=== PATIENT | female | born 1995 | race Caucasian/White ===

== ENCOUNTER 2018-12-12 11:34 | Outpatient (REF) | payer OTHER, SELFPAY ==
--- NOTE | 2018-12-12 11:00 | PAPFT_PTH ---
PATIENT: Samantha Salazar LOC: [facility] U#:[id number] AGE/SX: 23/F ROOM: RE12/12/[address]: MARILIN Matias : 1995 BED: DIS: 12/12/2018 SPEC #: [id number] RECD: 12/12/18 12:52 STATUS: OLIVER REQ #: [id number] TINO: 12/12/18 11:[address]: Grace Fields DEPT: [facility] Cytology RECD BY: Nichole Aquino ENTERED: 12/12/18 12:53 SP TYPE: PAPFT LORE DR: None Tissues: 1 - CX/ENDOCX FOR PAP SMEARS Procedures: PAP THIN PREP/[facility]VM Screening Comments: [id number]
[2018-12-15 14:37] LABS: Chlamydia Result Negative; GC Result Negative; Specimen Description CERVIX
== END 2018-12-12 11:54 ==
LOC: LBN 11:34
PROVIDERS: Visit Provider Nurse Practitioner Family
DX: Z00.00 Encounter for general adult medical examination without abnormal findings (principal); Z11.3 Encounter for screening for infections with a predominantly sexual mode of transmission; Z12.4 Encounter for screening for malignant neoplasm of cervix
CPT/HCPCS: 87491; 87591; 88142

== ENCOUNTER 2019-04-08 16:13 | Outpatient (REF) | payer OTHER, SELFPAY ==
[2019-04-08 21:50] LABS: Abs Immature Grans 0.01 k/cumm (0.0-0.09); Absolute Basophil Count 0.02 k/cumm (0.0-0.2); Absolute Eosinophil Count 0.09 k/cumm (0.0-0.7); Absolute Lymphocyte Count 2.63 k/cumm (1.2-3.4); Absolute Monocyte Count 0.56 k/cumm (0.11-0.7); Absolute Neutrophil Count 3.67 k/cumm (1.2-6.7); Basophils % 0.3; Eosinophils % 1.3; HCT 40.4 % (36.0-46.0); HGB 13.1 g/dL (12.0-15.5); Immature Grans % 0.1; Lymphocytes % 37.7; Mean Corp. HGB Concentration 32.4 g/dL (32.0-36.0); Mean Corpuscular Hemoglobin 29.6 pg (27.0-33.0); Mean Corpuscular Volume 91.4 fL (80-95); Mean Platelet Volume 11.8 fL (8.0-11.0); Neutrophils % 52.6; Platelet Count 280 x1000/uL (130-400); RBC 4.42 m/cumm (4.00-5.20); RBC Distribution Width 12.6 % (11.7-14.6); White Blood Cell Count 6.98 k/cumm (4.4-10.8)
[2019-04-08 22:09] LABS: Bilirubin Negative (Negative); Blood Negative (Negative); Clarity Clear (Clear); Glucose Negative (Negative); Ketones Negative (Negative); Leukocyte Esterase Negative (Negative); Nitrite Negative (Negative); Specific Gravity 1.015 (1.005-1.025); Urobilinogen 0.2 EU/dL (Up TO 0.2)
[2019-04-08 22:14] LABS: ALT 21 U/L (12-78); AST 18 U/L (15-37); Albumin 3.7 g/dL (3.4-5.0); Alkaline Phosphatase 84 U/L (46-116); BUN 11 mg/dL (7-18); Bilirubin, Total 0.2 mg/dL (0.2-1.0); CREATININE 0.73 mg/dL (0.55-1.02); Calcium 8.7 mg/dL (8.5-10.1); Chloride 103 mmol/L (98-107); Glucose 91 mg/dL (70-100); Potassium 4.2 mmol/L (3.5-5.1); Sodium 141 mmol/L (136-145); TSH (W/Ref FT4) 1.19 uIU/mL (0.358-3.74); Total Protein 7.1 g/dL (6.4-8.2); Vitamin B12 244 pg/mL (193-986)
== END 2019-04-08 16:33 ==
LOC: NCHCN 16:13
PROVIDERS: Visit Provider Nurse Practitioner Family
DX: F10.11 Alcohol abuse, in remission (principal); F41.8 Other specified anxiety disorders; R45.4 Irritability and anger; R35.0 Frequency of micturition
CPT/HCPCS: 80053; 81003; 82607; 84443; 85025

== ENCOUNTER 2019-10-06 15:25 | Outpatient (CLI) | payer OTHER, SELFPAY ==
[2019-10-06 15:51] LABS: Abs Immature Grans 0.01 k/cumm (0.0-0.09); Absolute Basophil Count 0.01 k/cumm (0.0-0.2); Absolute Eosinophil Count 0.03 k/cumm (0.0-0.7); Absolute Lymphocyte Count 2.08 k/cumm (1.2-3.4); Absolute Monocyte Count 0.49 k/cumm (0.11-0.7); Absolute Neutrophil Count 4.57 k/cumm (1.2-6.7); Basophils % 0.1; Eosinophils % 0.4; HCT 40.8 % (36.0-46.0); HGB 13.4 g/dL (12.0-15.5); Immature Grans % 0.1 %; Lymphocytes % 28.9; Mean Corp. HGB Concentration 32.8 g/dL (32.0-36.0); Mean Corpuscular Hemoglobin 29.1 pg (27.0-33.0); Mean Corpuscular Volume 88.7 fL (80-95); Mean Platelet Volume 10.4 fL (8.0-11.0); Monocytes % 6.8; Neutrophils % 63.7; Platelet Count 260 x1000/uL (130-400); RBC Distribution Width 12.1 % (11.7-14.6); White Blood Cell Count 7.19 k/cumm (4.4-10.8)
[2019-10-06 16:35] LABS: ALT 16 U/L (14-59); AST 17 U/L (15-37); Albumin 3.7 g/dL (3.4-5.0); Alkaline Phosphatase 103 U/L (46-116); Anion Gap 11.7 mmol/L (3-11); BUN 11 mg/dL (7-18); Bilirubin, Total 0.6 mg/dL (0.2-1.0); CO2 27.3 mmol/L (21.0-32.0); CREATININE 0.83 mg/dL (0.55-1.02); Calcium 9.3 mg/dL (8.5-10.1); Chloride 101 mmol/L (98-107); Glucose 102 mg/dL (74-106); Lipase 72 U/L (73-393); Potassium 3.8 mmol/L (3.5-5.1); Sodium 140 mmol/L (136-145); Total Protein 7.3 g/dL (6.4-8.2)
== END 2019-10-06 15:45 ==
PROVIDERS: PCP Nurse Practitioner Family; Visit Provider Specialist/Technologist Athletic Trainer
DX: R10.30 Lower abdominal pain, unspecified (principal)
CPT/HCPCS: 36415; 80053; 83690; 85025

== ENCOUNTER 2019-10-07 01:54 | Outpatient (CLI) | payer OTHER, SELFPAY ==
--- NOTE | 2019-10-07 08:13 | DI.US_ITS ---
EXAM: US PELVIS TRANSVAGINAL CLINICAL HISTORY: LOW ABD PAIN, LT GREATER THAN RT, R10.30 TECHNIQUE: Ultrasound performed using standard protocol. Transabdominal and transvaginal exams wer e performed. COMPARISON: No exams were available for comparison FINDINGS: The uterus measures 7 x 2.9 x 3.5 cm. The endometrial stripe measures 3 millimeters in thickness. The ovaries are normal in size and appearance. No cysts or masses are seen. There is no evidence of free fluid or hydronephrosis. IMPRESSION: Negative pelvic ultrasound.
== END 2019-10-07 02:14 ==
PROVIDERS: PCP Nurse Practitioner Family; Visit Provider Specialist/Technologist Athletic Trainer
DX: R10.32 Left lower quadrant pain (principal)
CPT/HCPCS: 76830; 76856

== ENCOUNTER 2020-03-04 15:14 | Outpatient (REF) | payer OTHER, SELFPAY ==
--- NOTE | 2020-03-04 15:40 | PAPFT_PTH ---
PATIENT: Samantha Salazar LOC: [facility] U#:[id number] AGE/SX: 24/F ROOM: RE03/04/[address]: MARILIN Matias : 1995 BED: DIS: 03/04/2020 SPEC #: [id number] RECD: 03/07/20 12:31 STATUS: OLIVER REQ #: [id number] TINO: 03/04/20 15:[address]: Grace Fields DEPT: [facility] Cytology RECD BY: Barbara Bennett ENTERED: 03/07/20 12:31 SP TYPE: PAPFT OTHR DR: Lillie Lara Tissues: 1 - CX/ENDOCX FOR PAP SMEARS Procedures: PAP THIN PREP/UVM Screening Comments: [id number]
[2020-03-07 15:45] LABS: Chlamydia Result Negative (Negative); GC Result Negative (Negative)
== END 2020-03-04 15:34 ==
LOC: LBN 15:14
PROVIDERS: PCP Nurse Practitioner Family; Visit Provider Nurse Practitioner Family
DX: Z11.3 Encounter for screening for infections with a predominantly sexual mode of transmission (principal); Z12.4 Encounter for screening for malignant neoplasm of cervix
CPT/HCPCS: 87491; 87591; 88142

== ENCOUNTER 2020-11-07 03:21 | Outpatient (CLI) | payer OTHER, SELFPAY ==
[2020-11-07 09:54] LABS: Vitamin D 25 Total 28.6 ng/ml (30-100)
== END 2020-11-07 03:22 | disposition home or self-care (01) ==
PROVIDERS: PCP Nurse Practitioner Family; Visit Provider Nurse Practitioner Psychiatric/Mental Health
DX: F41.8 Other specified anxiety disorders (principal); E55.9 Vitamin D deficiency, unspecified
CPT/HCPCS: 36415; 82306

== ENCOUNTER 2021-01-04 11:08 | Outpatient (REF) | payer OTHER, SELFPAY ==
[2021-01-04 22:11] LABS: Abs Immature Grans 0.01 10^3/uL (0.0-0.06); Absolute Basophil Count 0.02 10^3/uL (0.0-0.2); Absolute Eosinophil Count 0.03 10^3/uL (0.0-0.7); Absolute Lymphocyte Count 1.74 10^3/uL (1.2-3.4); Absolute Monocyte Count 0.42 10^3/uL (0.1-0.8); Absolute Neutrophil Count 3.91 10^3/uL (1.2-6.7); Basophils % 0.3; Eosinophils % 0.5; HCT 40.4 % (36.0-46.0); HGB 13.2 g/dL (11.2-15.7); Immature Grans % 0.2; Lymphocytes % 28.4; MCH 28.8 pg (27.0-33.0); MCHC 32.7 % (32.0-36.0); MCV 88.2 fL (80-95); MPV 11.3 fL (8.0-11.0); Monocytes % 6.9; Neutrophils % 63.7; Nucleated RBC 0 %; Platelet Count 297 10^3/uL (130-400); RBC 4.58 10^6/uL (3.93-5.22); RDW 13.2 % (11.7-14.6); RDW-SD 42.3 fL; WBC 6.13 10^3/uL (4.4-10.8)
[2021-01-04 22:42] LABS: Ferritin 42 ng/mL (8-252); TSH (W/Ref FT4) 1.22 uIU/mL (0.36-3.74)
[2021-01-04 22:44] LABS: Iron 73 ug/dL (50-170); Total Iron Binding Capacity 443 ug/dL (250-450); Transferrin Sat 16 % (15-50)
[2021-01-05 04:37] LABS: Vitamin D 25 Total 28.2 ng/mL (30-100)
== END 2021-01-04 11:09 | disposition home or self-care (01) ==
LOC: NCHCN 11:08
PROVIDERS: PCP Nurse Practitioner Family; Visit Provider Nurse Practitioner Family
DX: E55.9 Vitamin D deficiency, unspecified (principal); R53.83 Other fatigue; K62.5 Hemorrhage of anus and rectum
CPT/HCPCS: 82306; 82728; 83540; 83550; 84443; 85025

== ENCOUNTER 2021-03-06 14:11 | Outpatient (REF) | payer OTHER, SELFPAY ==
--- NOTE | 2021-03-06 13:45 | PAPFT_PTH ---
PATIENT: Samantha Salazar LOC: [facility] U#:[id number] AGE/SX: 25/F ROOM: RE03/06/[address]: MARILIN Matias : 1995 BED: DIS: 03/06/2021 SPEC #: [id number] RECD: 03/06/21 18:00 STATUS: ROSLYNYaya REQ #: [id number] TINO: 03/06/21 13:[address]: Grace Fields DEPT: [facility] Cytology RECD BY: Barbara Bennett ENTERED: 03/06/21 18:00 SP TYPE: PAPFT OTHR DR: Lillie Lara Tissues: 1 - CX/ENDOCX FOR PAP SMEARS Procedures: PAP THIN PREP/UVM Screening Comments: [id number]
--- OUTSIDE RECORDS SUMMARY | 2021-03-06 14:15 | XMS_ITS ---
:1995 Author Care Team Providers Name Role Phone RASHIDA TYSON [employer]BACCO WAREHOUSE MANAGER Primary Care Provider [phone] [facility] MEDICAL RECORDS Primary Care Provider [phone] Allergies Code Code System Name Reaction Severity Status Onset NKDA ? Medications Name Status Start Date Stop Date ? ? buspirone 10 mg tablet Active ? Not avail able Take 1 tablet twice a day by oral route. citalopram 10 mg tablet Completed ? 06/09/20 Take 1 tablet every day by oral route. citalopram 20 mg tablet Completed ? 06/09/20 20 Take 1 tablet every day by oral route. Lamictal 25 mg chewable dispersible tablet Completed ? 06/09/2020 Chew 2 tablets twice a day by oral route. lamotrigine 100 mg tablet Completed ? 2020 Take 1 tablet every day by oral route. methylphenidate 20 mg tablet Active ? Not available Take 1 tablet 3 times a day by oral route. modafinil 200 mg tablet Completed ? 11/14/19 take 1/2 to 1 tablet PO QAM norethindrone Active ? Not available olanzapine 5 mg disintegrating tablet Completed ? 10/20/2020 Place 1 tablet twice a day by translingual route. Ortho Micronor 0.35 mg tablet Completed ? Take 1 tablet every day by oral route. propranolol 10 mg tablet Active ? Not shyann ilable Take 2 tablets 3 times a day by oral route. trazodone 50 mg tablet Completed ? Take 1 tablet every day by oral route. Vraylar 1.5 mg capsule Active ? Not avail able Take 1 capsule every day by oral route. zolpidem 5 mg tablet Completed ? 08/05/2020 take 1-2 PO night of sleep study if needed Problems Name Status Onset Date Source ? Obesity Active 05/31/2020 ? Bipolar Disorder Active 05/31/2020 ? Fatigue Active 05/31/2020 ? Palpitations Active 05/31/2020 ? Dysphagia Active 05/31/2020 ? Abdominal Pain Active 05/31/2020 ? Snoring Active 06/08/2020 ? Hypnagogic Hallucinations Active 06/09/2020 ? Weight Gain Active 08/09/2020 ? Narcolepsy without Cataplexy Active ? ? Procedures None recorded. Results Lab Results Date Name Specimen Result Interpretation Description Value Range Status Address ? 09/16/2020 Drug UR ? Thc negative neg (50 Final [place] Screen, NG/mL NG/mL) Hospital Lab Urine NG/mL (Internal) : [address], [place] ? ? UR ? Pcp negative neg (25 Final [place] NG/mL) Hospital L ab (Internal) : [address], [place] ? ? UR ? Will negative neg (150 [place] NG/mL) Hospital L ab (Internal) : [address], [place] ? ? UR ? Met negative neg (500 Final [place] NG/mL) Hospital L ab (Internal) : [address] [place] ? ? UR ? Opi negative neg (100 Final [place] NG/mL) Hospital L ab (Internal) : [address] [place] ? ? UR ? Amp negative neg (500 Final [place] NG/mL) Hospital L ab (Internal) : [address] [place] ? ? UR ? Bzo negative neg (150 Final [place] NG/mL) Hospital L ab (Internal) : [address] [place] ? ? UR ? Tca negative neg (300 Final [place] NG/mL) Hospital L ab (Internal) : [address] [place] ? ? UR ? Mtd negative neg (200 [place] NG/mL) Hospital L ab (Internal) : [address] [place] ? ? UR ? Bar negative neg (200 Final [place] NG/mL) Hospital L ab (Internal) : [address] [place] ? ? UR ? Oxy negative neg (100 Final [place] NG/mL) Hospital L ab (Internal) : [address] [place] ? ? UR ? Ppx negative neg (300 Final [place] NG/mL) Hospital L ab (Internal) : [address] [place] ? ? UR ? Bup negative neg (10 [place] NG/mL) Hospital L ab (Internal) : [address] [place] Past Encounters 01/24/2021 Narcolepsy without Cataplexy Kath Ochoa HEALTHCARE MANAGEMENT CONSULTANT: [address] [place] [phone], Ph. 11/16/2020 Narcolepsy without Cataplexy Kath Ochoa HEALTHCARE MANAGEMENT CONSULTANT: [address] [place] [phone], Ph. 10/20/2020 Narcolepsy without Cataplexy Kath Ochoa HEALTHCARE MANAGEMENT CONSULTANT: [address] [place] [phone], Ph. 08/09/2020 Hypnagogic Hallucinations; Hypersomnia; Weight Gain Kath Ochoa HEALTHCARE MANAGEMENT CONSULTANT: [address] [place] [phone], Ph. 06/09/2020 Snoring; Hypnagogic Hallucinations; Slee p Paralysis Kath Ochoa HEALTHCARE MANAGEMENT CONSULTANT: [address] [place] [phone], Ph. Social History Tobacco Smoking Status Never Smoker Vaccine List None recorded. Plan of Care Reminders Provider Appointments None ? ? recorded. Lab None ? ? recorded. Referral None ? ? recorded. Procedures None ? ? recorded. Surgeries None ? ? recorded. Imaging None ? ? recorded. Vitals 01/24/2021 08:45AM Office 30 Height Weight BMI Blood Pressure 162.56 cm 90.72 kg 34.3 kg/m2 135/65 mm[Hg] 11/16/2020 12:30PM Office 30 Height Weight BMI 162.56 cm 90.72 kg 34.3 kg/m2 10/20/2020 08:00AM Office 30 Height Weight BMI 162.56 cm 94.8 kg 35.9 kg/m2 08/09/2020 09:45AM Office 30 Height Weight BMI Blood Pressure 162.56 cm 95.21 kg 36 kg/m2 118/76 mm[Hg] 06/09/2020 01:45PM New Patient 45 Height Weight BMI Blood Pressure 162.56 cm 90.45 kg 34.2 kg/m2 124/76 mm[Hg]
--- OUTSIDE RECORDS SUMMARY | 2021-03-06 14:15 | XMS_ITS | Encounter Summary ---
:1995 Author Care Team Providers Name Role Phone Lillie Marcelo Marco JAMMER HOOKER Primary Care Provider [phone] [facility] Medical Records Primary Care Provider [phone] Reason for Visit None recorded. Assessment and Plan 1. Narcolepsy without cataplexy MSLT 09/16/20 (after full nigh t PSG with 97% sleep efficiency), she slept 5/5 nap with a mean sleep latency of 5 minutes and 3/5 SOREM's. She was taking methylphenidate 20 mg TID (prescribed b y psychiatry) with significant residual sleepiness so it was recently changed to extended release and this has been even less effective. She did not tolerate modafinil 200 mg. Given her Bipolar diagnosi s Sunosi would not be a good choice. Wak ix and Xywav may be considered in addition to methylphenidate for residual daytime sleepiness. I previously suggested planned naps but her schedule does not allow this. She is advsied to contact Arin zhu's office to report that the new medication is not working. In the meantime I discussed Wakix and Xywav and covered side effects and risks of these medicati ons (including need for back-up contrace ption, respiratory depression, seizure, coma and ). She is aware she would need to sign a controlled drug contract if she started one of these. She wanted so me time to think about these options and will get back to us with her decision. Drowsy driving precautions were reviewed. I provided greater than 30 minutes in e care of this patient, more than half the time was spent in [id number] counseling. Discussion Note: None recorded.Patient educational handouts: No information available. Plan of Care Reminders Provider Appointments None ? ? recorded. Lab None ? ? recorded. Referral None ? ? recorded. Procedures None ? ? recorded. Surgeries None ? ? recorded. Imaging None ? ? recorded. Medications Name Start Date ? ? buspirone 10 mg tablet ? Take 1 tablet twice a day by oral route. methylphenidate 20 mg tablet ? Take 1 tablet 3 times a day by oral route. norethindrone ? propranolol 10 mg tablet ? Take 2 tablets 3 times a day by oral route. Vraylar 1.5 mg capsule ? Take 1 capsule every day by oral route. Medications Administered None recorded. Vitals Height Weight BMI Blood Pressure 5 ft 4 in 200 lbs 34.3 kg/m2 135/65 mm[Hg] Results Lab Results None recorded. Allergies Code Code System Name Reaction Severity Onset NKDA ? ? ? Problems Name Status Onset Date Source ? Obesity Active 05/31/2020 ? Bipolar Disorder Active 05/31/2020 ? Fatigue Active 05/31/2020 ? Palpitations Active 05/31/2020 ? Dysphagia Active 05/31/2020 ? Abdominal Pain Active 05/31/2020 ? Snoring Active 06/08/2020 ? Hypnagogic Hallucinations Active 06/09/2020 ? Weight Gain Active 08/09/2020 ? Narcolepsy without Cataplexy Active ? ? Procedures None recorded. Vaccine List None recorded. Social History Tobacco Smoking Status Never Smoker Alcohol intake Occasional Notes: once a wee k Live alone or with others? with others Notes: boy friend Animal exposure? N Notes: 4 cats Are you currently employed? Y Education 12 Blind or serious difficulty seeing Y Not es: corrective lens Hard of hearing or deaf in one or N both ears? 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 Past Encounters 01/24/2021 Narcolepsy without Cataplexy Kath Ochoa MORTGAGE PROCESSOR: [address] [place] [phone], Ph. History of Present Illness Note: <p>Shonaryan Salazar has a Zoom visit for narcolepsy follow-up. She has given consent to have a telehealth visit. Patient is at home, provider is in the office</p><p>
</p><p>Shan was last seen by me on 11/16/20. She has a medical history to include Bipolar, PTSD, ADHD, ETOH abuse in remission, overweight and narcolepsy. Labs 10/06/19 CMP and CBC normal. She noted symptoms of snoring, daytime somnolence (ESS 12), witnessed apneas, night sweats, nocturia, nocturnal heartburn, sleep paralysis and possible hypnagogic hallucinations.</p><p><br& gt;</p><p>Polysomnogram was completed on {{DATE 06/27/2020}} (BMI 34.15) . Sleep efficiency was {{96# 80}}%, AHI {{0.2# NUMBER}}/hr, RDI {{0.4# NUMBER}}/hr, REM AHI {{1.1# NUMBER}}/hr, REM RDI {{1.6# NUMBER}}/hr, supine AHI {{0# NUMBER}}/hr, right lateral AHI {{2# NUMBER}}/hr, left lateralAHI {{0# NUMBER}}/hr, sp02 julio césar {{91# NUMBER}}%, {{0# NUMBER}} minutes were spent at a saturation <88%, arousal index {{9# NUMBER}}/hr, PLMi {{0# NUMBER}}/hr, PLM arousal index {{0# NUMBER}}/hr. EKG showed {{NSR*}}. Intermittent snoring. She took Ambien 5 mg for the study, sleep onset 13 minute s, REM latency 186 minutes, REM sleep 22%. MSLT ordered last visit.</p><p>Polysomnogram was completed on {{DATE 09/15/2020}} (BMI 35.87). Sleep efficiency was {{97# 80}}%, sleep onset 8 minutes, REM latency 102 minutes. AHI {{1.4# NUMBER}}/hr, RDI {{2.2# NUMBER}}/hr, REM AHI {{NUMBER*}}/hr, REM RDI {{5.7# NUMBER}}/hr, supine AHI {{2# NUMBER}}/hr, right lateral AHI {{0# NUMBER}}/hr, left lateral AHI {{0# NUMBER}}/hr, sp02 julio césar {{85# NUMBER}}%, {{0# NUMBER}} minutes were spent at a saturation <88%, arousal index {{4# NUMBER}}/hr, PLMi {{0# NUMBER}}/hr, PLM arousal index {{0# NUMBER}}/hr. EKG showed {{tachycardia# NSR}}. MSLT 09/16/20 she slept 5/5 naps, mean sleep latency and 3/5SOREM's consistent with a diagnosis of narcolepsy.</p><p>
</p><p>Last visit she was taking methylphenidate 20 mg TID prescribed by psychiatry. She had intolerable side effects to modafinil 200 mg. She was in the process of weaning off lamotrigine and had just been started on Vraylar. Occasional difficulty getting to sleep.</p><p>
</p><p>Astrid says she is now completely off the lamotrigine. About 1-2 weeks ago she was changed over to me thylphenidate ER 18 mg and she feels it is not helping at all. The methylphenidate 20 mg TID was only helping a little bit. She is feeling discouraged about feeling so sleepy. She is trying to be alseep by 10 pm, she occasionally struggles to fall asleep. She tosses and turns and wakes up a lot and is aware of a lot of dreaming. She gets up at 7 am. She is not able to take naps because of work and is exhausted all day. </p><p>She is getting her medications prescribed by Arin Clark NP. </p><p>
</p><p>
</p><p>ESS today </p><p>
</p>Review of Systems: ROS as noted in the HPI Review of Systems None recorded. Physical Exam ? Notes: <p>General: A&O, well groome d {{over weight * obese morbidly obese normal weight thin}}.
HEAD: no rmocephalic & atraumatic.
EYES: non icteric.
LUNGS: CTA all f ields. Good air movement.
CARDIO: RRR without murmur, gallop or thrill.
NEURO: A&O. Normal gait.
PSYCH: Normal mood and affect.
CUTANEOUS: no overt lesions or rashes</p>
[2021-03-07 14:02] LABS: Chlamydia Result Negative (Negative); GC Result Negative (Negative)
== END 2021-03-06 14:12 | disposition home or self-care (01) ==
LOC: LBN 14:11
PROVIDERS: PCP Nurse Practitioner Family; Visit Provider Nurse Practitioner Family
DX: Z11.3 Encounter for screening for infections with a predominantly sexual mode of transmission (principal); Z12.4 Encounter for screening for malignant neoplasm of cervix
CPT/HCPCS: 87491; 87591; 88142

== ENCOUNTER 2022-03-19 13:35 | Outpatient (REF) | payer BC, SELFPAY ==
--- NOTE | 2022-03-19 13:00 | PAPFT_PTH ---
PATIENT: Samantha Salazar LOC: [facility] U#:[id number] AGE/SX: 26/F ROOM: RE03/19/[address]: MARILIN Matias : 1995 BED: DIS: 03/19/2022 SPEC #: [id number] RECD: 03/19/22 18:22 STATUS: OLIVER REQ #: [id number] TINO: 03/19/22 13:[address]: Grace Fields DEPT: [facility] Cytology RECD BY: Barbara Bennett ENTERED: 03/19/22 18:23 SP TYPE: PAPFT OTHR DR: Lillie Lara Tissues: 1 - CX/ENDOCX FOR PAP SMEARS Procedures: PAP THIN PREP/UVM Screening Comments: [id number]
[2022-03-20 15:15] LABS: Chlamydia Result Negative (Negative); GC Result Negative (Negative)
== END 2022-03-19 13:36 | disposition home or self-care (01) ==
LOC: LBN 13:35
PROVIDERS: PCP Nurse Practitioner Family; Visit Provider Nurse Practitioner Family
DX: Z11.3 Encounter for screening for infections with a predominantly sexual mode of transmission (principal); Z12.4 Encounter for screening for malignant neoplasm of cervix
CPT/HCPCS: 87491; 87591; 88142

== ENCOUNTER 2022-05-16 16:08 | Outpatient (REF) | payer OTHER, SELFPAY ==
--- OUTSIDE RECORDS SUMMARY | 2022-05-16 16:10 | XMS_ITS | Encounter Summary ---
:1995 Author Organization [facility] Address [address] [place] [address] Care Team Providers Name Role Phone Unknown, Provider Primary Care Provider Encounter Details Date Type Department Care Team Description 03/04/2020 Lab Requisition [facility] Outr Resulting Lab, Pathology & Laboratory Provider [facility] [address] [place] [address] Social History Tobacco Use Types Packs/Day Years Used Date Never Assessed Sex Assigned at Date Recorded Not on file documented as of this encounter Plan of Treatment Not on filedocumented as of this encounter Procedures Procedure Name Priority Date/Time Associated Comments Diagnosis CHLAMYDIA/N. Routine 03/04/2020 15:40 Results for this GONORRHOEAE AMPLIFIED EDT proced ure are in RNA the results section. documented in this encounter Results CHLAMYDIA/N. GONORRHOEAE AMPLIFIED RNA (03/04/2020 15:40 EDT) Pathologist Sig nature Gonococcus Result Negative Negative [facility] Chlamydia Result Negative Negative [facility] Specimen Swab - Entire endocervix (body structure ) Performing Organization Address City/State/ZIP Code Phon e Number [facility] [address] [place] [address] SERVICES documented in this encounter Visit Diagnoses Not on filedocumented in this encounter Care Teams Night Clerk Relationship Specialty Start Date End Date Unknown, Provider, PCP - General 04/04/15 documented as of this encounter
--- OUTSIDE RECORDS SUMMARY | 2022-05-16 16:10 | XMS_ITS | Encounter Summary ---
:1995 Author Organization [facility] Address [address] [place] [address] Care Team Providers Name Role Phone Unknown, Provider Primary Care Provider Encounter Details Date Type Department Care Team Description 04/20/[address] [facility]- Grace Avila, [facility] [phone] [place] [address] [place] [phone] (Wo rk) Social History Tobacco Use Types Packs/Day Years Used Date Never Assessed Sex Assigned at Date Recorded Not on file documented as of this encounter Plan of Treatment Not on filedocumented as of this encounter Procedures Procedure Name Priority Date/Time Associated Diagnosis Comme nts PAP TEST- RESULT Routine 04/20/2016 0:00 EDT Resu lts for this ONLY procedure are i n the results section. documented in this encounter Results PAP TEST- RESULT ONLY (04/20/2016 0:00 EDT) Pathology Report: CYTOPATHOLOGY REPORT [facility] Reports generated via electronic interface contain damien ginal data; SERVICES however they are lacking the format of the original re port. Caution should be taken when reading/interpreting unfo rmatted reports. Name: ? RUSLAN BAIG ? Accession #: ? [id number] : ? 1995 (Age: 20) ??F ?Collect Date: ? 04/20 Location: ? [facility] ? Receive Date : ? 04/23/2016 Provider: ?GRACE BILLY GAS AND OIL SERVICER Copy to: ? Specimen/Source: ? Pap Test, Cervix/Endocervix, ThinPrep Imaging System with manual evaluation Last Menstrual Period: ? 04/05/16 ? SPECIMEN ADEQUACY ? Satisfactory for Evaluation - transformation zone component present - scant squamous epithelial component secondary to exc essive blood GENERAL CATEGORIZATION ? Negative for Intraepithelial Lesion or Malignan cy ? Document reviewed and electronically signed by: ? JUDI Lamb(ASCP) ? Report Date: ??05/02/2016 14:43 End of Report Specimen Performing Organization Address City/State/ZIP Code Phon e Number [facility] [address] [place] [address] SERVICES documented in this encounter Visit Diagnoses Not on filedocumented in this encounter Care Teams Ad Operations Intern Relationship Specialty Start Date End Date Unknown, Provider, PCP - General 04/04/15 documented as of this encounter
--- OUTSIDE RECORDS SUMMARY | 2022-05-16 16:10 | XMS_ITS | Encounter Summary ---
:1995 Author Organization [facility] Address [address] [place] [address] Care Team Providers Name Role Phone Unknown, Provider Primary Care Provider Encounter Details Date Type Department Care Team Description 11/18/2017 Results Only [facility]- Grace Avila, [facility] [phone] [place] [address] [place] [phone] (Wo rk) Social History Tobacco Use Types Packs/Day Years Used Date Never Assessed Sex Assigned at Date Recorded Not on file documented as of this encounter Plan of Treatment Not on filedocumented as of this encounter Procedures Procedure Name Priority Date/Time Associated Diagnosis Comme nts PAP TEST- RESULT Routine 11/18/2017 0:00 EST Resu lts for this ONLY procedure are i n the results section. documented in this encounter Results PAP TEST- RESULT ONLY (11/18/2017 0:00 EST) Pathology Report: CYTOPATHOLOGY REPORT [facility] Reports generated via electronic interface contain damien ginal data; SERVICES however they are lacking the format of the original re port. Caution should be taken when reading/interpreting unfo rmatted reports. Name: ? RUSLAN BAIG ? Accession #: ? [id number] : ? 1995 (Age: 21) ??F ?Collect Date: ? 11/18 Location: ? [facility] ? Receive Date : ? 11/19/2017 Provider: ?GRACE BILLY HELPER/DRIVER Copy to: ? Specimen/Source: ? Pap Test, Cervix, ThinPrep Imaging System with manual evaluation Last Menstrual Period: ? 11/06/2017 ? SPECIMEN ADEQUACY ? Satisfactory for Evaluation - transformation zone component present GENERAL CATEGORIZATION ? Negative for Intraepithelial Lesion or Malignan cy ? Document reviewed and electronically signed by: ? JUDI Curran(ASCP)(IAC) ? Report Date: ??11/30/2017 20:23 End of Report Specimen Performing Organization Address City/State/ZIP Code Phon e Number [facility] [address] [place] [address] SERVICES documented in this encounter Visit Diagnoses Not on filedocumented in this encounter Care Teams Plumbing Installer Relationship Specialty Start Date End Date Unknown, Provider, PCP - General 04/04/15 documented as of this encounter
--- OUTSIDE RECORDS SUMMARY | 2022-05-16 16:10 | XMS_ITS | Encounter Summary ---
:1995 Author Organization [facility] Address [address] [place] [address] Care Team Providers Name Role Phone Unknown, Provider Primary Care Provider Encounter Details Date Type Department Care Team Description 03/07/2021 Lab Requisition [facility] Grace Fields E ncounter for other Pathology & FINANCIAL AID COUNSELOR general examination Laboratory Medicine [address] [place], [place] [address] [facility] [phone] [place], [place] [id number] Social History Tobacco Use Types Packs/Day Years Used Date Never Assessed Sex Assigned at Date Recorded Not on file documented as of this encounter Plan of Treatment Not on filedocumented as of this encounter Procedures Procedure Name Priority Date/Time Associated Diagnosis Comme nts PAP TEST Today 03/06/2021 13:45 EDT Encounter for other Results for this general examination procedur e are in the results section. documented in this encounter Results PAP TEST (03/06/2021 13:45 EDT) Specimens A. Cervix and/or [facility] Endocervix , ThinPrep CENTER Imaging System with LABORATORY Manual Evaluation SERVICES Specimen Adequacy Satisfactory for [facility] Evaluation - CENTER transformation zone LABORATORY component present SERVICES General Negative for [facility] intraepithelial CENTER lesion or malignancy LABORATORY SERVICES Attestation . [facility] Electronically CENTER signed by Stephanie sosa, LABORATORY JUDI John( CP) SERVICES on 03/17/2021 at 0932 Clinical History See below [facility] Performing Lab [facility] Scanned Images [facility] Specimen Pap Test - Cervix and/or Endocervix Performing Organization Address City/State/ZIP Code Phon e Number [facility] [address] [place] [address] SERVICES documented in this encounter Visit Diagnoses Diagnosis Encounter for other general examination documented in this encounter Care Teams Nursing Manager Relationship Specialty Start Date End Date Unknown, Provider, PCP - General 04/04/15 documented as of this encounter
--- OUTSIDE RECORDS SUMMARY | 2022-05-16 16:10 | XMS_ITS | Encounter Summary ---
:1995 Author Organization [facility] Address [address] [place] [address] Care Team Providers Name Role Phone Unknown, Provider Primary Care Provider Encounter Details Date Type Department Care Team Description 03/08/2020 Lab Requisition [facility] Grace Fields E ncounter for other Pathology & HOLISTIC SPECIALIST general examination Laboratory Medicine [address] [place], [place] [address] [facility] [id number] [place], [place] [id number] Social History Tobacco Use Types Packs/Day Years Used Date Never Assessed Sex Assigned at Date Recorded Not on file documented as of this encounter Plan of Treatment Not on filedocumented as of this encounter Procedures Procedure Name Priority Date/Time Associated Diagnosis Comme nts PAP TEST Today 03/04/2020 15:40 EDT Encounter for other Results for this general examination procedur e are in the results section. documented in this encounter Results PAP TEST (03/04/2020 15:40 EDT) Specimens A. Cervix and/or [facility] MEDICAL Endocervix , ThinPrep CENTER Imaging System with LABORATORY Manual Evaluation SERVICES Specimen Adequacy Satisfactory for Evaluation - transformation zone component present [facility] MEDICAL Scant due to excessive blood CENTER LABORATORY SERVICES General Negative for [facility] intraepithelial CENTER lesion or malignancy LABORATORY SERVICES [facility] . [facility] signed by JERSEY Garcia CT(ASCP ) on SERVICES 03/15/2020 at 11 34 Clinical History NONE [facility] Scanned Images [facility] Specimen Pap Test - Cervix and/or Endocervix Narrative This result has an attachment that is no t available. Performing Organization Address City/State/ZIP Code Phon e Number [facility] [address] [place] [address] SERVICES documented in this encounter Visit Diagnoses Diagnosis Encounter for other general examination documented in this encounter Care Teams Sheet Turner Relationship Specialty Start Date End Date Unknown, Provider, PCP - General 04/04/15 documented as of this encounter
--- OUTSIDE RECORDS SUMMARY | 2022-05-16 16:10 | XMS_ITS | Encounter Summary ---
:1995 Author Organization [facility] Address [address] [place] [address] Care Team Providers Name Role Phone Unknown, Provider Primary Care Provider Encounter Details Date Type Department Care Team Description 03/06/2021 Lab Requisition [facility] Outr Resulting Lab, Pathology & Laboratory Provider [facility] [address] [place] [address] Social History Tobacco Use Types Packs/Day Years Used Date Never Assessed Sex Assigned at Date Recorded Not on file documented as of this encounter Plan of Treatment Not on filedocumented as of this encounter Procedures Procedure Name Priority Date/Time Associated Comments Diagnosis CHLAMYDIA/N. Routine 03/06/2021 13:45 Results for this GONORRHOEAE AMPLIFIED EDT proced ure are in RNA the results section. documented in this encounter Results CHLAMYDIA/N. GONORRHOEAE AMPLIFIED RNA (03/06/2021 13:45 EDT) Pathologist Sig nature Gonococcus Result Negative Negative [facility] Chlamydia Result Negative Negative [facility] Specimen Swab - Entire endocervix (body structure ) Performing Organization Address City/State/ZIP Code Phon e Number [facility] [address] [place] [address] SERVICES documented in this encounter Visit Diagnoses Not on filedocumented in this encounter Care Teams Aviation Electrical Technician Relationship Specialty Start Date End Date Unknown, Provider, PCP - General 04/04/15 documented as of this encounter
--- OUTSIDE RECORDS SUMMARY | 2022-05-16 16:10 | XMS_ITS | Clinical Summary ---
:1995 Author Organization [facility] Address [address] [place] [address] Care Team Providers Name Role Phone Unknown, Provider Primary Care Provider Encounters Date Type Specialty Care Team Description 03/21/2022 Lab Requisition Clinical Laboratory Grace Fields Encounter for other COMMUNITY ARTIST general examina tion 03/19/2022 Lab Requisition Clinical Laboratory Outr Resulting Lab, Provider from Last 3 Months Social History Tobacco Use Types Packs/Day Years Used Date Never Assessed Sex Assigned at Date Recorded Not on file Plan of Treatment Health Maintenance Due Date Last Done Comments Hepatitis C Screen 1993 COVID-19 Vaccine (#1) 1998 Procedures Procedure Name Priority Date/Time Associated Diagnosis Comme nts PAP TEST Today 03/19/2022 13:00 Encounter for other Resu lts for this EDT general examination procedur e are in the results section. CHLAMYDIA/N. Routine 03/19/2022 13:00 Results for this GONORRHOEAE EDT procedure are i n AMPLIFIED RNA the results section. from Last 3 Months Results PAP TEST (03/19/2022 13:00 EDT) Specimens A. Cervix and/or [facility] Endocervix , ThinPrep CENTER Imaging System with LABORATORY Manual Evaluation SERVICES Specimen Adequacy Satisfactory for [facility] MEDICAL Evaluation - CENTER transformation zone LABORATORY component absent SERVICES General Negative for [facility] intraepithelial CENTER lesion or malignancy LABORATORY SERVICES Attestation . [facility] MED[facility] Electronically CENTER signed by JERSEY Wu SCT(ASCP) on SERVICES 03/23/2022 at 13 05 Clinical History See below [facility] Performing Lab [facility] Scanned Images [facility] Specimen Pap Test - Cervix and/or Endocervix Performing Organization Address City/State/ZIP Code Phon e Number [facility] [address] [place] [address] SERVICES CHLAMYDIA/N. GONORRHOEAE AMPLIFIED RNA (03/19/2022 13:00 EDT) Pathologist Sig nature Gonococcus Result Negative Negative [facility] Chlamydia Result Negative Negative [facility] Specimen Swab - Entire endocervix (body structure ) Performing Organization Address City/State/ZIP Code Phon e Number [facility] [address] [place] [address] SERVICES from Last 3 Months Care Teams Supervisor Marble Relationship Specialty Start Date End Date Unknown, Provider, PCP - General 04/04/15
--- OUTSIDE RECORDS SUMMARY | 2022-05-16 16:11 | XMS_ITS | Encounter Summary ---
:1995 Author Organization [facility] Address [address] [place] [address] Care Team Providers Name Role Phone Unknown, Provider Primary Care Provider Encounter Details Date Type Department Care Team Description 03/31/[address] [facility] Grace Avila, [facility] [phone] [place] [address] [place] [address] (Wo rk) Social History Tobacco Use Types Packs/Day Years Used Date Never Assessed Sex Assigned at Date Recorded Not on file documented as of this encounter Plan of Treatment Not on filedocumented as of this encounter Procedures Procedure Name Priority Date/Time Associated Diagnosis Comme nts PAP TEST- RESULT Routine 03/31/2015 0:00 EDT Resu lts for this ONLY procedure are i n the results section. documented in this encounter Results PAP TEST- RESULT ONLY (03/31/2015 0:00 EDT) Pathology Report: CYTOPATHOLOGY REPORT [facility] Reports generated via electronic interface contain damien ginal data; SERVICES however they are lacking the format of the original re port. Caution should be taken when reading/interpreting unfo rmatted reports. Name: ? RUSLAN BAIG ? Accession #: ? [id number] : ? 1995 (Age: 19) ??F ?Collect Date: ? 2014 Location: ? [facility] ? Receive Date : ? 04/04/2015 Provider: ?GRACE BILLY OIL CHANGER Copy to: ? Specimen/Source: ? Pap Test, Cervix/Endocervix, ThinPrep Imaging System with manual evaluation Last Menstrual Period: ? 03/24/15 Other: ? Additional clinical information: First pap ? SPECIMEN ADEQUACY ? Satisfactory for Evaluation - transformation zone component present GENERAL CATEGORIZATION ? Negative for Intraepithelial Lesion or Malignan cy ? Document reviewed and electronically signed by: ? Dora Carr, CT(ASCP) ? Report Date: ??04/11/2015 12:59 End of Report Specimen Performing Organization Address City/State/ZIP Code Phon e Number [facility] [address] [place] [address] SERVICES documented in this encounter Visit Diagnoses Not on filedocumented in this encounter Care Teams Nutrition Services Aide Relationship Specialty Start Date End Date Unknown, Provider, PCP - General 04/04/15 documented as of this encounter
[2022-05-16 19:23] LABS: Abs Immature Grans 0.01 10^3/uL (0.0-0.06); Absolute Basophil Count 0.02 10^3/uL (0.0-0.2); Absolute Eosinophil Count 0.02 10^3/uL (0.0-0.7); Absolute Monocyte Count 0.46 10^3/uL (0.1-0.8); Absolute Neutrophil Count 3.63 10^3/uL (1.2-6.7); Basophils % 0.3; Eosinophils % 0.3; HCT 40.6 % (36.0-46.0); HGB 13.5 g/dL (11.2-15.7); Immature Grans % 0.2; Lymphocytes % 36.7; MCH 28.3 pg (27.0-33.0); MCHC 33.3 % (32.0-36.0); MCV 85 fL (80-95); MPV 12.2 fL (8.0-11.0); Neutrophils % 55.5; Platelet Count 261 10^3/uL (130-400); RBC 4.77 10^6/uL (3.93-5.22); RDW 12.2 % (11.7-14.6); WBC 6.54 10^3/uL (4.4-10.8)
[2022-05-16 19:47] LABS: ALT 25 U/L (14-59); AST 22 U/L (15-37); Albumin 3.9 g/dL (3.4-5.0); Alkaline Phosphatase 91 U/L (46-116); Anion Gap 9.7 mmol/L (3-11); BUN 9 mg/dL (7-18); Bilirubin, Total 0.3 mg/dL (0.2-1.0); CO2 28.3 mmol/L (21.0-32.0); CREATININE 0.8 mg/dL (0.55-1.02); Chloride 102 mmol/L (98-107); Glucose 95 mg/dL (74-106); Potassium 4.2 mmol/L (3.5-5.1); Sodium 140 mmol/L (136-145); TSH (W/Ref FT4) 1.49 uIU/mL (0.36-3.74); Total Protein 7.5 g/dL (6.4-8.2)
== END 2022-05-16 16:09 | disposition home or self-care (01) ==
LOC: NCHCN 16:08
PROVIDERS: PCP Nurse Practitioner Family; Visit Provider Family Medicine
DX: R53.83 Other fatigue (principal); R13.10 Dysphagia, unspecified; L65.9 Nonscarring hair loss, unspecified
CPT/HCPCS: 80053; 84443; 85025

== ENCOUNTER 2022-11-07 13:21 | Outpatient (REF) | payer OTHER, SELFPAY ==
[2022-11-08 12:53] LABS: HSV 1 DNA Result Negative (Negative); HSV 2 DNA Result Negative (Negative)
== END 2022-11-07 13:22 | disposition home or self-care (01) ==
LOC: LBN 13:21
PROVIDERS: PCP Nurse Practitioner Family; Visit Provider Advanced Practice Midwife
DX: N89.8 Other specified noninflammatory disorders of vagina
CPT/HCPCS: 87529; 86695; 86696; 87480; 87510; 87660

== ENCOUNTER 2023-03-11 02:12 | Outpatient (CLI) | payer OTHER, SELFPAY ==
--- NOTE | 2023-03-11 | DI.RAD_ITS ---
Exam(s) RF MODIFIED SPEECH BA SWALLOW TECHNIQUE: Modified barium swallow was performed in conjunction with speech pathology. CONTRAST MATERIAL: Oral barium Oral water soluble contrast was administered. COMPARISON: No exams were available for comparison FINDINGS: Fluoroscopy provided during swallowing mechanism study performed in conjunction with the speech thera pist. See that separate report for details. IMPRESSION: There was no evidence of aspiration on this study. No obstructing lesion in the distal esophagus seen. No hiatal hernia. No Schatzki ring. See separate speech therapy report for details. RADIATION DOSE DELIVERED: kleber Roque=25.7 mGy
--- NOTE | 2023-03-11 09:18 | ST.MBS ---
Date of Service Date of service: 03/11/23 Time of Service: 09:18 Modified Barium Swallow Study Findings: Modified Barium Swallow Study/Video Fluoroscopic Swallow Evaluation Speech-Language Pathology Report - Outpatient Referred by: Lillie Lara Reason for referral: Dysphagia ?related to anxiety, mechanical, neurological or structural. Primary Medical Diagnosis: R13.10 Dysphagia Date of onset of diagnosis: 06/25/22 HPI: Patient is a 27 y/o F with history of anxiety, PTSD, dyspepsia who is referred by PCP due to concerns related to swallowing solids for last 2 months. She has reported that she will forget to swallow, panic, worries about choking, requiring extra focus to eat. Subjective: Astrid arrives for today's procedure on time, unaccompanied. She reports similar types of symptoms, though perhaps mild improvements, and attributes this to having learned to adjust somewhat and using strategies. She still experiences panic and difficulty with swallowing meats, pills. IMPRESSIONS: Swallow safety is preserved; swallow efficiency is mildly impaired. Asrtid presents with primarily mild esophageal dysphagia. Her pharyngeal initiation was very timely, motility of tongue base, posterior pharyngeal wall, and hyo-laryngeal structures is well preserved and no penetration into the larynx occurred. Perhaps very mild reduced epiglottic inversion, though pharyngeal (including vallecular) residue was negligible across textures. Oral control and speed were normal except in one instance with large bolus of sticky puree, when patient appeared with somewhat disorganized tongue movement and piecemeal deglutition, likely secondary to swallowing-related anxiety, or perhaps complicated by dry mouth. Barium tablet did not transit past the mid-distal esophagus, though passage was aided by puree chaser and ultimately resolved with thin liquid wash. Pharyngo-esophageal segment appeared with possibly mild narrowing, though no notable pyriform or UES residue resulting from this and there was no visible evidence of hypertrophy. It is likely that patient's difficulty with swallowing is at least partially explained by referred discomfort, residue in the esophagus is frequently perceived at the level of the pharynx. Patient appears to be at low risk for potential aspiration PNA and/or pulmonary compromise and low risk for malnutrition, low risk for dehydration. Diet modification is indicated for comfort and efficiency, but per patient preference; non-oral nutrition is not indicated. Swallow prognosis is excellent given: Positive prognostic factors: Age, Severity, Motivation, Cognitive status, Effectiveness of trialed compensatory strategies, No further MANAGED SECURITY SALES CONSULTANT services are warranted at this time, provided that patient is able to adhere to the recommendations as provided below. She is welcome to return for repeat evaluation if symptoms change or worsen in the future despite treatment. Suggested Specialist referrals:? GI, or consider trial tx for GERD RECOMMENDATIONS: Diet Texture Recommendation:? IDDSI LEVEL SOLIDS 6-Soft & Bite-Sized Solids or per patient preference. LIQUIDS 0-Thin Liquids Please see further details at?www.iddsi.org MEDICATIONS Whole with 0-Thin Liquids or 4-Puree, followed by 1-2 sips thin liquid wash. Diet texture modification is per patient's preference; please adjust diet textures at patient's discretion & collaboration with care team. Do not alter medications (e.g., cut)? without advice from your MD or pharmacist. Risk Management Strategies:? Behavioral reflux precautions, including upright position during + 90 mins after meals. Sleep with head of bed elevated or with wedge pillow to achieve incline of trunk. Smaller & more frequent meals throughout the day. Small bites, approx [id number] Alternate solids/liquids as able Control risk factors for aspiration pneumonia via (a) thorough oral hygiene & (b) maintaining physical mobility as tolerated PLAN: No further MANAGED SECURITY SALES CONSULTANT services are warranted at this time, provided that patient is able to adhere to the recommendations as provided below. She is welcome to return for repeat evaluation if symptoms change or worsen in the future despite medical treatment. ----- OBJECTIVE Videofluoroscopic Swallow Evaluation (VFSE/MBSS) was conducted in the lateral projection by Speech-Language Pathologist, in collaboration with Radiologist, to evaluate oropharyngeal swallow function. Anatomic view under fluoroscopy: WFL; Radiologist noting no hiatal hernia or schatski ring. PO Barium Contrast Trials Oral barium water-soluble contrast was administered as follows: IDDSI Level 0 Varibar thin liquid (40% w/v) IDDSI Level 2 Varibar nectar thick/mildly thick liquid (40% w/v) IDDSI Level 4 Varibar pudding/pureed/extremely thick (40% w/v) IDDSI Level 7 Regular Solid: 1/2 jhonny cracker coated in 3 mL Varibar pudding 13 mm barium tablet taken with Thin Liquids. MBSImP Component Scores: COMPONENT Scale SCORE 1 Lip closure (0-4) 0 Resulted in no labial escape 2 Hold Position (0-3) 0 Maintained a cohesive bolus between tongue to palatal seal 3 Bolus Preparation (0-4) 0 Resulted in timely and efficient chewing and mashing 4 Bolus Transport (0-4) 3 Was with repetitive/disorganized motion of the tongue 5 Oral Residue (0-4) 1 Was a trace, lining oral structures 6 Swallow Initiation (0-4) 0 Occurred as bolus head at posterior angle of the mandibular ramus 7 Soft Palate Elevation (0-4) 0 Resulted in no bolus between soft palate and the pharyngeal wall 8 Laryngeal Elevation (0-3) 0 Demonstrated complete superior movement of thyroid cartilage with complete approximation of arytenoids to epiglottic petiole 9 Anterior Hyoid Motion (0-2) 0 Demonstrated complete anterior movement 10 Epiglottic Movement (0-2) 1 Resulted in partial inversion 11 Laryngeal Closure (0-2) 0 Was complete with no air or contrast in laryngeal vestibule 12 Pharyngeal Stripping Wave (0-2) 0 Was present and complete 13 Pharyngeal Contraction (0-3) NA 14 PES Opening (0-3) 1 Demonstrated partial distension/partial duration, with partial obstruction of flow 15 Tongue Base Retraction (0-4) 0 Allowed no contrast between the tongue base and posterior pharyngeal wall 16 Pharyngeal Residue (0-4) 1 Showed a trace within or on pharyngeal structures 17 Esophageal Clearance (0-4) NA Penetration-Aspiration Scale: COMPONENT Scale SCORE 1 Thin liquid (1-8) 1 Contrast did not enter the airway 2 [place] thick (1-8) NA 3 Honey thick (1-8) NA 4 Pudding thick (1-8) 1 Contrast did not enter the airway 5 Cookie (1-8) 1 Contrast did not enter the airway Observations not captured in quantitative data: Unable to score esophageal clearance due to lack of A/P view, however, barium tablet does not pass beyond mid-distal esophagus with initial swallow, requires puree (unsuccessful) and thin liquid (successful) to pass beyond LES into stomach. Disorganized tongue motion not reproduced in other trials/consistencies outside of large spoonful sticky puree. Trialed Compensatory Strategies & Outcome: Maneuvers Successful (+) Unsuccessful (-) Postures Successful (+) Unsuccessful (-) 3 second Preparatory Set? ? +/- Chin Tuck Posture? ? Cough? ? Posterior Head tilt? Reflexive? Cued? Throat Clear? ? Head Tilt to? Reflexive? Left? Cued? Right? ? Saliva swallow? ? Head Turn/Rotate to? ? Supraglottic Swallow? Left? ? Super-supraglottic Swallow? Right? ? Bolus Modifications Successful (+) Unsuccessful (-) Delivery/Alternating Consistencies ? Follow with Liquid Wash + to resolve esophageal stasis ? Follow with Solid Bolus? (puree) - helped but did not resolve Delivery/Via Straw? ? Reduced Volume? +/- for liquid, + for solid Reduced Rate of Intake? ? Increased Viscosity? ? Other:?? ? Thank you for allowing us to take part in this patient's care. Please feel free to contact the [facility] Speech Language Pathology Department with any questions/concerns. Coding CPT Codes MOTION FLUOROSCOPY/SWALLOW - [id number] ([id number])
[2023-03-11] MEDS: Barium Sulfate 700 MG TAB PO (10:01)
[2023-03-11] MEDS: Barium Sulfate 40% W/V 1500 CPS 250 ML BTL PO (10:02)
[2023-03-11] MEDS: Barium Sulfate 40% W/V 240 ML BTL 80 ML PO (10:03)
[2023-03-11] MEDS: Barium Sulfate Oral Paste 40% W/V 230 ML TUBE 15 ML PO (10:04)
[2023-03-11] MEDS: Barium Sulfate 81% w/w for Oral Suspension 148 GM BTL 100 GM PO (10:05)
== END 2023-03-11 02:32 ==
LOC: DI 02:12
PROVIDERS: PCP Nurse Practitioner Family; Visit Provider Nurse Practitioner Family
DX: R13.10 Dysphagia, unspecified (principal)
CPT/HCPCS: 92611; 74221

== ENCOUNTER 2025-08-18 12:13 | Outpatient (REF) | payer BC, SELFPAY ==
--- NOTE | 2025-08-18 10:30 | PAPFT_PTH ---
PATIENT: Samantha Salazar LOC: [facility]#:[id number] AGE/SX: 29/F ROOM: RE08/18/[address]: Krsitin Florentino NP : 1995 BED: DIS: 08/18/2025 SPEC #: [id number] RECD: 08/18/25 12:47 STATUS: OLIVER RERemy #: [id number] TINO: 08/18/25 10:[address]: Chadd WEST,Kristin DEPT: [facility] Cytology RECD BY: Barbara Bennett ENTERED: 08/18/25 12:48 SP TYPE: PAPFT OTHR DR: Lillie Lara Tissues: 1 - CX/ENDOCX FOR PAP SMEARS Procedures: PAP THIN PREP/UVM Screening HPV DNA PROBE Comments: [id number] (HPV 16 & 18/45)
== END 2025-08-18 12:14 | disposition home or self-care (01) ==
LOC: LBN 12:13
PROVIDERS: PCP Nurse Practitioner Family; Visit Provider Nurse Practitioner Women's Health
DX: Z12.4 Encounter for screening for malignant neoplasm of cervix (principal)
CPT/HCPCS: 88142; 87624